=== PATIENT | female | born 1990 | race Hispanic/Latino ===

== ENCOUNTER 2017-12-24 16:19 | Emergency (ER) | payer OTHER | END 2017-12-24 17:56 | disposition home or self-care (01) | LOC: EDH 16:19 | DX: S61.432A Puncture wound without foreign body of left hand, initial encounter (principal); Z79.899 Other long term (current) drug therapy; W46.0XXA Contact with hypodermic needle, initial encounter; Y93.89 Activity, other specified; Y92.89 Other specified places as the place of occurrence of the external cause; Y99.8 Other external cause status | CPT/HCPCS: 36415; 86701; 86704; 86706; 87390; 87520 ==

== ENCOUNTER 2020-10-18 16:43 | Emergency (ER) | payer OTHER ==
[2020-10-18] MEDS ORDERED: IBUPROFEN 600 MG TABLET ONE (17:03)
[2020-10-18] MEDS ORDERED: ACETAMINOPHEN EXTRA STRENGTH 500 MG TABLET ONE (17:03)
[2020-10-18 17:20] LABS: APPEARANCE,URINE SL CLOUDY (CLEAR); BILIRUBIN,URINE NEGATIVE (NEGATIVE); COLOR,URINE ORANGE (YELLOW); GLUCOSE, URINE (UA) 250 mg/dL (NEGATIVE); KETONES,URINE 40 mg/dL (NEGATIVE); LEUKOCYTE ESTERASE ,URINE SMALL (NEGATIVE); NITRATE,URINE POSITIVE (NEGATIVE); OCCULT BLOOD,URINE NEGATIVE (NEGATIVE); PROTEIN,URINE >=300 mg/dL (NEGATIVE); UROBILINOGEN,URINE >=8.0 mg/dL (0.2-1.0)
[2020-10-18 17:52] LABS: BACTERIA,URINE Few /HPF (None Seen); MUCUS,URINE Moderate LPF (None Seen); RBC,URINE 0-1 /HPF (0-1); SQUAMOUS EPITHELIAL CELL,UR Moderate /HPF (0-2)
[2020-10-18] MEDS ORDERED: SODIUM CHLORIDE 0.9% 1000ML 1,000 ML IV ONE (18:03)
[2020-10-18] MEDS ORDERED: KETOROLAC TROMETHAMINE 30MG/ML ONE (18:03)
[2020-10-18] MEDS ORDERED: ONDANSETRON HCL 4 MG/2 ML VIAL ONE (18:03)
[2020-10-18 18:32] LABS: BASOPHILS % (AUTO) 0.1 % (0.0-5.0); EOSINOPHILS % (AUTO) 1.4 % (0.0-8.0); LYMPHOCYTES % (AUTO) 18.3 % (21.0-51.0); MEAN CORPUSCULAR HEMOGLOBIN 29.1 pg (27.0-33.0); MEAN CORPUSCULAR HGB CONC 34.9 g/dL (32.0-36.0); MEAN CORPUSCULAR VOLUME 83.5 fL (79-99); MONOCYTES % (AUTO) 4.4 % (3.0-13.0); NEUTROPHILS % (AUTO) 75.4 % (40.0-77.0); PLATELET COUNT (AUTO) 193 K/uL (130-400); RED BLOOD CELL COUNT(AUTO) 4.19 MIL/uL (4.00-5.50); RED CELL DISTRIBUTION WIDTH 12.6 % (11.0-15.5); WHITE BLOOD COUNT (AUTO) 7.2 K/uL (4.8-10.8)
[2020-10-18 18:52] LABS: ALBUMIN 3.1 g/dL (3.5-5.0); BILIRUBIN,TOTAL 0.6 mg/dL (0.2-1.0); CREATININE 0.7 mg/dL (0.5-1.5); TOTAL PROTEIN, SERUM 7.3 g/dL (6.0-8.3)
[2020-10-18 18:56] LABS: POTASSIUM 2.7 mmol/L (3.5-5.1)
[2020-10-18] MEDS ORDERED: POTASSIUM BICARB/CIT AC 25 MEQ TABLET.EFF ONE (19:05)
[2020-10-18] MEDS ORDERED: CEFTRIAXONE SODIUM 500 MG VIAL ONE (19:05)
[2020-10-18] MEDS ORDERED: AZITHROMYCIN 250 MG TABLET PO ONE (19:06)
== END 2020-10-18 19:23 | disposition home or self-care (01) ==
LOC: EDH 16:43
DX: A60.00 Herpesviral infection of urogenital system, unspecified (principal); N73.9 Female pelvic inflammatory disease, unspecified; E87.6 Hypokalemia; Z90.49 Acquired absence of other specified parts of digestive tract
CPT/HCPCS: 36415; 80053; 81001; 85025; 87040 ×2; 87088; 87486; 87529; 87797; 96361; 96374; 99284; J0696; J1885; J2405; J7030